=== PATIENT | female | born 2000 | race Caucasian/White ===

== ENCOUNTER 2022-03-09 14:09 | Emergency (ER) | payer MEDICAID | END 2022-03-09 15:08 | disposition home or self-care (01) | LOC: MW.ED 14:09 | DX: S00.551A Superficial foreign body of lip, initial encounter (principal); L08.9 Local infection of the skin and subcutaneous tissue, unspecified; F17.210 Nicotine dependence, cigarettes, uncomplicated; Z79.899 Other long term (current) drug therapy; W45.8XXA Other foreign body or object entering through skin, initial encounter | CPT/HCPCS: 81025; 99284 ==

== ENCOUNTER 2022-05-23 16:23 | Emergency (ER) | payer MEDICAID ==
[2022-05-23] MEDS ORDERED: Lidocaine 2% Viscous Solution 15 ML UD PO ONE (16:46)
[2022-05-23] MEDS ORDERED: Benzocaine 20% Topical Spray UD MUCMEM ONE (16:46)
== END 2022-05-23 17:03 | disposition home or self-care (01) ==
LOC: MW.ED 16:23
DX: K04.7 Periapical abscess without sinus (principal)
CPT/HCPCS: 99282; A9270; 99283

== ENCOUNTER 2022-07-09 13:19 | Emergency (ER) | payer MEDICAID ==
[2022-07-09 15:26] LABS: C. TRACHOMATIS BY PCR NOT DETECTED; N. GONORRHOEAE BY PCR NOT DETECTED
== END 2022-07-09 14:30 | disposition home or self-care (01) ==
LOC: MW.ED 13:19
DX: S20.02XA Contusion of left breast, initial encounter (principal); S20.01XA Contusion of right breast, initial encounter; S60.212A Contusion of left wrist, initial encounter; S60.211A Contusion of right wrist, initial encounter; Z72.0 Tobacco use; Y04.0XXA Assault by unarmed brawl or fight, initial encounter
CPT/HCPCS: 71046; 71046-26; 81025; 87491; 87591; 99284

== ENCOUNTER 2022-07-19 11:46 | Emergency (ER) | payer MEDICAID | END 2022-07-19 12:22 | disposition home or self-care (01) | LOC: MW.ED 11:46 | DX: K08.89 Other specified disorders of teeth and supporting structures (principal) | CPT/HCPCS: 99282 ==

== ENCOUNTER 2024-01-08 10:04 | Observation (INO) | payer MEDICAID ==
[2024-01-08] MEDS ORDERED: Sodium Chloride 0.9% 20 ML SDV IV PRN (12:23)
[2024-01-08] MEDS ORDERED: Misoprostol 25 MCG (1/4 of 100 MCG) Tab VAG PRN (12:23)
[2024-01-08] MEDS ORDERED: Sodium Chloride 0.9% 2.5 ML Syringe FLUSH PRN (12:23)
[2024-01-08] MEDS ORDERED: Carboprost Tromethamine 250 MCG/1 mL Vial IM PRN (12:23)
[2024-01-08] MEDS ORDERED: Lidocaine 1% 50 ML MDV INJECT PRN (12:23)
[2024-01-08] MEDS ORDERED: Terbutaline 1 MG/ML SDV SUBCUT PRN (12:23)
[2024-01-08] MEDS ORDERED: Methylergonovine 0.2 MG/1 ML Amp IM PRN (12:23)
[2024-01-08] MEDS ORDERED: Ondansetron 4 MG/2 ML SDV IVPUSH PRN (12:23)
[2024-01-08] MEDS ORDERED: Tranexamic Acid IN NACL,ISO-OS 1,000 MG in Premix Bag 1 BAG IV PRN (12:23)
[2024-01-08] MEDS ORDERED: Misoprostol 200 MCG Tab PO PRN (12:23)
[2024-01-08] MEDS ORDERED: Water For Irrigation,Sterile 1,000 ML Container IRR PRN (12:23)
[2024-01-08] MEDS ORDERED: Sodium Chloride 0.9% 10 ML Syringe FLUSH PRN (12:23)
[2024-01-08] MEDS ORDERED: Butorphanol 2 MG/ML SDV IVPUSH PRN (12:23)
[2024-01-08] MEDS ORDERED: Oxytocin/0.9 % Sodium Chloride 30 UNIT/500 ML BAG IV SCH ×2 (12:30)
[2024-01-08] MEDS ORDERED: Lactated Ringers 1,000 ML IV SCH (12:30)
[2024-01-08 12:47] LABS: HEMATOCRIT 35.3 % (37.0-47.0); HEMOGLOBIN 11.9 g/dL (12.0-16.0); MEAN CORPUSCULAR HEMOGLOBIN 30.1 pg (28.0-32.0); MEAN CORPUSCULAR HGB CONC 33.7 g/dL (32.0-36.0); MEAN CORPUSCULAR VOLUME 89.4 fL (83.0-99.0); MEAN PLATELET VOLUME 11.8 fL (9.4-12.3); PLATELET COUNT,PLT 227 K/uL (150-400); RED BLOOD CELL COUNT 3.95 M/uL (4.10-5.30); WHITE BLOOD CELL COUNT,WBC 11.51 K/uL (3.9-11.3)
[2024-01-08] MEDS: Misoprostol 25 MCG (1/4 of 100 MCG) Tab VAG PRN (12:53)
== END 2024-01-09 10:00 | disposition home or self-care (01) ==
LOC: MW.OB 10:04
PROVIDERS: ADMIT Obstetrics & Gynecology; ATTEND Obstetrics & Gynecology
DX: Z34.03 Encounter for supervision of normal first pregnancy, third trimester (principal); Z3A.39 39 weeks gestation of pregnancy
CPT/HCPCS: 59025; 85027; 86592; 86850; 86900; 86901; A9270; 36415

== ENCOUNTER 2024-01-11 16:05 | Inpatient (IN) | payer MEDICAID ==
[2024-01-11] MEDS ORDERED: Sodium Chloride 0.9% 20 ML SDV IV PRN (18:33)
[2024-01-11] MEDS ORDERED: Sodium Chloride 0.9% 2.5 ML Syringe FLUSH PRN (18:33)
[2024-01-11] MEDS ORDERED: Lidocaine 1% 50 ML MDV INJECT PRN (18:33)
[2024-01-11] MEDS ORDERED: Water For Irrigation,Sterile 1,000 ML Container IRR PRN (18:33)
[2024-01-11] MEDS ORDERED: Methylergonovine 0.2 MG/1 ML Amp IM PRN (18:33)
[2024-01-11] MEDS ORDERED: Misoprostol 200 MCG Tab PO PRN (18:33)
[2024-01-11] MEDS ORDERED: Carboprost Tromethamine 250 MCG/1 mL Vial IM PRN (18:33)
[2024-01-11] MEDS ORDERED: Terbutaline 1 MG/ML SDV SUBCUT PRN (18:33)
[2024-01-11] MEDS ORDERED: Sodium Chloride 0.9% 10 ML Syringe FLUSH PRN (18:33)
[2024-01-11] MEDS ORDERED: Oxytocin/0.9 % Sodium Chloride 30 UNIT/500 ML BAG IV SCH (18:45)
[2024-01-11] MEDS ORDERED: Ondansetron 4 MG/2 ML SDV IVPUSH PRN (19:24)
[2024-01-11] MEDS: Misoprostol 25 MCG (1/4 of 100 MCG) Tab VAG PRN (20:14)
[2024-01-11 20:22] LABS: HEMATOCRIT 42.7 % (37.0-47.0); HEMOGLOBIN 14.2 g/dL (12.0-16.0); MEAN CORPUSCULAR HGB CONC 33.3 g/dL (32.0-36.0); MEAN CORPUSCULAR VOLUME 90.1 fL (83.0-99.0); MEAN PLATELET VOLUME 12.1 fL (9.4-12.3); PLATELET COUNT,PLT 179 K/uL (150-400); RED BLOOD CELL COUNT 4.74 M/uL (4.10-5.30); WHITE BLOOD CELL COUNT,WBC 15.22 K/uL (3.9-11.3)
[2024-01-12] MEDS: Lidocaine 1% 2 ML ONE (00:07)
[2024-01-12] MEDS: Butorphanol 2 MG/ML SDV IVPUSH PRN (01:22)
[2024-01-12] MEDS: Oxytocin/0.9 % Sodium Chloride 30 UNIT/500 ML BAG IV SCH (04:32)
[2024-01-12] MEDS: Lactated Ringers 1,000 ML IV SCH (04:32)
[2024-01-12] MEDS ORDERED: Ropivacaine HCl/PF 200 ML ONE (09:09)
[2024-01-12] MEDS ORDERED: Bupivacaine 0.5% 10 ML SDV ONE (09:09)
[2024-01-12] MEDS ORDERED: Phenylephrine HCl In 0.9% NaCl 1 MG/10 ML Syringe ONE (09:09)
[2024-01-12] MEDS: Ropivacaine HCl/PF 400 MG in Premix Bag 1 BAG EPIDUR SCH (09:26)
[2024-01-12] MEDS: Phenylephrine HCl In 0.9% NaCl 1 MG/10 ML Syringe IVPUSH PRN (09:36)
[2024-01-12] MEDS ORDERED: ePHEDrine 50 MG/ML SDV IVPUSH PRN (09:41)
[2024-01-12] MEDS ORDERED: Bupivacaine 0.5% 10 ML SDV INJECT ONE (09:42)
[2024-01-12] MEDS ORDERED: ePHEDrine 50 MG/ML SDV IM PRN (09:42)
[2024-01-12] MEDS ORDERED: dexmedeTOMIDine HCl 200 MCG/2 ML SDV EPIDUR SCH (09:45)
[2024-01-12] MEDS ORDERED: Docusate Sodium 100 MG Cap PO PRN (16:56)
[2024-01-12] MEDS ORDERED: oxyCODONE 5 MG Tab PO PRN (16:56)
[2024-01-12] MEDS: Ibuprofen 800 MG Tab PO PRN (19:03)
[2024-01-12] MEDS: Witch Hazel Medicated Pads 40/Jar TOP PRN (19:04)
[2024-01-12] MEDS: Lanolin 100% Cream 7 GM Tube TOP PRN (19:04)
[2024-01-12] MEDS: Benzocaine/Menthol 20%-0.5% Spray 78 GM Cannister TOP PRN (19:05)
[2024-01-12] MEDS: Acetaminophen 500 MG Tab PO PRN (23:00)
[2024-01-13 05:50] LABS: PH,UMBILICAL ARTERIAL 7.244 (7.18-7.38); PH,UMBILICAL VENOUS 7.348 (7.25-7.45)
[2024-01-13 06:04] LABS: HEMATOCRIT 32.9 % (37.0-47.0); HEMOGLOBIN 11.1 g/dL (12.0-16.0)
[2024-01-13] MEDS ORDERED: Calcium Carbonate 500 MG Tab.Chew PO SCH (09:00)
== END 2024-01-13 18:50 | disposition home or self-care (01) | DRG 807 ==
LOC: MW.OB 16:05 → OBSVTOIN 01-12 16:05 → MW.OB 01-12 20:00
PROVIDERS: ADMIT Obstetrics & Gynecology; ATTEND Obstetrics & Gynecology
PROC: 10E0XZZ Delivery of Products of Conception, External Approach (ICD-10-PCS; principal; 2024-01-12)
PROC: 0KQM0ZZ Repair Perineum Muscle, Open Approach (ICD-10-PCS; 2024-01-12)
PROC: 3E0P7VZ Introduction of Hormone into Female Reproductive, Via Natural or Artificial Opening (ICD-10-PCS; 2024-01-12)
PROC: 3E0R3BZ Introduction of Anesthetic Agent into Spinal Canal, Percutaneous Approach (ICD-10-PCS; 2024-01-12)
PROC: 00HU33Z Insertion of Infusion Device into Spinal Canal, Percutaneous Approach (ICD-10-PCS; 2024-01-12)
DX: O99.344 Other mental disorders complicating childbirth (principal); Z37.0 Single live birth; F41.9 Anxiety disorder, unspecified; F32.A Depression, unspecified; O70.1 Second degree perineal laceration during delivery; O43.893 Other placental disorders, third trimester; Z3A.39 39 weeks gestation of pregnancy; Z98.890 Other specified postprocedural states
CPT/HCPCS: 36415; 51702; 59409; 82803; 85014; 85018; 85027; 86592; 86850; 86900; 86901; A9270-GY; J0595; J0665; J2371; J2590; J2795; J3490; J7120

== ENCOUNTER 2024-01-15 11:39 | Emergency (ER) | payer MEDICAID ==
[2024-01-15] MEDS ORDERED: Sodium Chloride 0.9% 2.5 ML Syringe FLUSH PRN (11:53)
[2024-01-15] MEDS ORDERED: Sodium Chloride 0.9% 10 ML Syringe FLUSH PRN (11:53)
[2024-01-15 12:31] LABS: BASOPHILS ABSOLUTE AUTO 0.03 K/uL (0.00-0.20); BASOPHILS PERCENT AUTO 0.2 % (0.0-1.0); EOSINOPHILS ABSOLUTE AUTO 0.29 K/uL (0.00-0.45); EOSINOPHILS PERCENT AUTO 2.3 % (0.0-6.0); HEMATOCRIT 36.5 % (37.0-47.0); HEMOGLOBIN 12.4 g/dL (12.0-16.0); IMMATURE GRAN ABSOLUTE AUTO 0.07 K/uL (0.00-0.05); IMMATURE GRAN PERCENT AUTO 0.6 % (0.0-0.4); LYMPHOCYTES ABSOLUTE AUTO 2.19 K/uL (1.00-4.80); LYMPHOCYTES PERCENT AUTO 17.6 % (24.0-44.0); MEAN CORPUSCULAR HEMOGLOBIN 30.5 pg (28.0-32.0); MEAN CORPUSCULAR VOLUME 89.7 fL (83.0-99.0); MEAN PLATELET VOLUME 11.5 fL (9.4-12.3); MONOCYTES ABSOLUTE AUTO 0.83 K/uL (0.00-0.80); MONOCYTES PERCENT AUTO 6.7 % (0.0-8.0); NEUTROPHILS ABSOLUTE AUTO 9.06 K/uL (1.80-7.70); NEUTROPHILS PERCENT AUTO 72.6 % (41.0-71.0); PLATELET COUNT,PLT 258 K/uL (150-400); RED BLOOD CELL COUNT 4.07 M/uL (4.10-5.30); WHITE BLOOD CELL COUNT,WBC 12.47 K/uL (3.9-11.3)
[2024-01-15] MEDS: Acetaminophen 500 MG Tab PO STA (12:31)
[2024-01-15 13:01] LABS: A/G RATIO 0.6 (0.9-1.6); ALBUMIN 2.5 g/dL (3.4-5.0); BILIRUBIN TOTAL 0.2 mg/dL (0.2-1.0); CALCIUM 9.2 mg/dL (8.5-10.1); CARBON DIOXIDE,CO2 26.4 mmol/L (21.0-32.0); CREATININE 0.7 mg/dL (0.6-1.0); EST CRCL DRUG DOSING (CG) 100.55 mL/min; MAGNESIUM 1.6 mg/dL (1.8-2.4); PROTEIN TOTAL,TP 6.8 g/dL (6.4-8.2)
[2024-01-15] MEDS: Magnesium Oxide 400 MG Tab PO STA (13:19)
[2024-01-15 13:28] LABS: APPEARANCE,URINE SLT CLOUDY; BILIRUBIN,URINE NEGATIVE (NEGATIVE); COLOR,URINE YELLOW; GLUCOSE,URINE NEGATIVE (NEGATIVE); KETONES,URINE NEGATIVE (NEGATIVE); LEUKOCYTE ESTERASE,URINE SMALL (NEGATIVE); NITRITE,URINE POSITIVE (NEGATIVE); OCCULT BLOOD,URINE LARGE (NEGATIVE); PROTEIN,URINE NEGATIVE (NEGATIVE); UROBILINOGEN,URINE 0.2 EU/dL (<2.0)
[2024-01-15 13:44] LABS: BACTERIA,URINE 2+ (NEGATIVE); EPITHELIAL CELLS,URINE FEW (NONE-FEW); MUCUS,URINE LIGHT (NONE-MOD); RBC,URINE 0-3 (0-2/HPF); WBC,URINE 0-1 (0-5/HPF)
== END 2024-01-15 15:09 | disposition home or self-care (01) ==
LOC: MW.ED 11:39
DX: R82.71 Bacteriuria (principal); O99.893 Other specified diseases and conditions complicating puerperium; R60.9 Edema, unspecified; Z79.899 Other long term (current) drug therapy
CPT/HCPCS: 36415; 80053; 81001; 83615; 83735; 85025; 87086; 87088; 87186; 93970; 99284; A9270